=== PATIENT | male | born 2000 | race Caucasian/White ===

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

== ENCOUNTER 2022-05-03 00:20 | Outpatient (CLI) | payer OTHER, BC | END 2022-05-03 00:21 | disposition other institution (70) | LOC: EMS 00:20 | DX: S01.112A Laceration without foreign body of left eyelid and periocular area, initial encounter (principal); S01.511A Laceration without foreign body of lip, initial encounter; S09.92XA Unspecified injury of nose, initial encounter; R04.0 Epistaxis; R07.89 Other chest pain; R23.1 Pallor; R41.0 Disorientation, unspecified; V43.54XA Car driver injured in collision with van in traffic accident, initial encounter; Y93.89 Activity, other specified; Y92.414 Local residential or business street as the place of occurrence of the external cause | CPT/HCPCS: A0425; A0427 ==

== ENCOUNTER 2022-11-13 17:48 | Outpatient (CLI) | payer OTHER, BC | END 2022-11-13 23:54 | disposition EMS.NT | LOC: EMS 17:48 | DX: M25.571 Pain in right ankle and joints of right foot (principal); M79.605 Pain in left leg; S50.811A Abrasion of right forearm, initial encounter; S60.512A Abrasion of left hand, initial encounter; V28.49XA Other motorcycle driver injured in noncollision transport accident in traffic accident, initial encounter; Y93.55 Activity, bike riding; Y92.410 Unspecified street and highway as the place of occurrence of the external cause ==